=== PATIENT | male | born 1955 | race Caucasian/White ===

== ENCOUNTER → 2020-06-05 | Outpatient (CLI) | payer BC ==
[2020-06-05 08:24] LABS: ALBUMIN 3.5 g/dL (3.4-5.0); ALBUMIN/GLOBULIN RATIO 1.1 (1.0-1.7); CALCIUM 8.5 mg/dL (8.5-10.1); CREATININE 1.3 mg/dL (0.7-1.3); GFR 55.6; TOTAL BILIRUBIN 0.4 mg/dL (0.2-1.0); TOTAL PROTEIN 6.8 g/dL (6.4-8.2)
--- NOTE | 2020-06-05 08:43 | RAD ---
Carotid artery duplex Doppler ultrasound Stenosis calculations for CT, MR, and conventional angiography are based upon measurements of the dis lili ICA diameter in accordance with the NASCET methodology. Stenosis calculations for carotid ultraso und studies are derived from validated velocity criteria which are known to correlate with the NASCET methodology. HISTORY: Carotid artery bruit. FINDINGS: Right carotid artery demonstrates no plaque or stenosis by grayscale and color Doppler sono graphy. Normal carotid waveforms. Internal carotid artery peak systolic velocity 57 cm/s, end-diastol ic velocity 20 cm/s. ICA/CC velocity ratio 0.8. Right vertebral artery antegrade blood flow. Left carotid artery demonstrates no plaquing or stenosis by grayscale and color Doppler sonography. N ormal carotid waveforms. Internal carotid artery peak systolic velocity 64 cm/s, end-diastolic veloci ty 29 cm/s. ICA/CC velocity ratio 0.9. Left vertebral artery antegrade blood flow. IMPRESSION: Normal exam. Electronically signed by: Freddie Garcia MD (06/05/2020 8:40 AM) [id number]
--- NOTE | 2020-06-05 16:52 | RAD ---
MR#: [id number] Date of Study: 06/05/2020 Ordering Physician: MOE ROSAS, Referring Physician: MIKAYLA BREWSTER Tech: RT Patricia (R) (N) APPROVED REPORT Test Type: Exercise Stress Nurse/Tech: RT Patricia (R) (N)Ant Test Indications: CAD Cardiac History: Hypertension, [place], Cath 2013 Resting Heart Rate: 57 bpm Resting Blood Pressure: 147/76mmHg Pretest Chest Pain: None Stress Symptoms Dyspnea POST EXERCISE Reason for Termination: Reached target heart rate Target HR: Yes Max HR: 132 bpm 100% of Maximum Predicted HR: 132 bpm Exercise duration: 8:45 min:sec, Stage Exercise capacity: 10METs Max Blood Pressure: 169/90mmHg Blood Pressure response to exercise: Normal blood pressure response during stress. Heart Rate response to exercise: Increase Chest Pain: No. Arrhythmia: No. ST Change: No. INTERPRETATION Stress EKG Conclusion: Baseline EKG showed sinus rhythm. No ischemic changes at peak stress. No arr hythmias. Imaging Protocol IMAGE PROTOCOL: Rest Tc-99m/stress Tc-99m 1 day Rest: Stress: Viability: Radiopharm.Tc99m CaqurtwcyFd84m Sestamibi Kwqs6cVh 30mCi Duration 15min. 15min. Img Date 06/05/2020 06/05/2020 Inj-Img [id number]. 60min. Rest Admin Site:IV - Right AntecubitalAdministrator: RT Patricia (Hemal)(N) Stress Admin Site: IV - Right AntecubitalAdministrator: RT Patricia (R)(N) STRESS DATA End Diast. Vol.122.0mlAv. Heart Rate64.0bpm End Syst. Vol.39.0mlCO Index BSA0.0L/min Myocardial Qkdr707.0gEject. Jciuauin15.0% Stress Rates Pk. Fill Rate2.18EDV/secLVtime Pk. Fill 213.09msec Pk. Empty Rate3.32ESV/secLVtime Pk. Fcmvp840.44msec 04/28 Pk. Fill1.39EDV/sec Stress Scores Regional WT1.00Summed WT1.00 Regional WM0.00Summed WM2.00 LV Perfusion Scintigraphic images showed small to moderate sized fixed defect involving the apical wall consistent with previous myocardial infarction without any reversibility. Wall Motion Apical wall hypokinesis with ejection fraction calculated at 67%. LV Perf. Quant 17 Seg. SSS14.00 17 Seg. SRS15.00 17 Seg. SDS0.00 Stress Defect Extent (% LAD)44.40Rest Defect Extent (% LAD)49.40Rev. Defect Extent (% LAD)0.00 Stress Defect Extent (% LCX) 15.00Rest Defect Extent (% LCX)22.50Rev. Defect Extent (% LCX)0.00 Stress Defect Extent (% RCA)7.80Rest Defect Extent (% RCA)16.70Rev. Defect Extent (% RCA)0.00 Stress Defect Extent (% MARLY)31.30Rest Defect Extent (% MARLY)38.50Rev. Defect Extent (% MARLY)0.00 Conclusion 1. Treadmill exercise cardioisotope stress test showed small to moderate apical wall infarct without any ischemia. 2. Apical wall hypokinesis with ejection fraction calculated at 67%. 3. Low risk for cardiac events. Signed by : Panchito Licona, Electronically Approved : 06/05/2020 16:51:55
== END ==
LOC: US 07:46
PROVIDERS: ATTEND Internal Medicine Cardiovascular Disease
DX: I21.29 ST elevation (STEMI) myocardial infarction involving other sites (principal); R09.89 Other specified symptoms and signs involving the circulatory and respiratory systems; E78.5 Hyperlipidemia, unspecified; I25.10 Atherosclerotic heart disease of native coronary artery without angina pectoris
CPT/HCPCS: 36415; 78452; 80053; 80061; 93017; 93880; A9500; 96376

== ENCOUNTER → 2020-07-09 | Outpatient (CLI) | payer BC ==
--- NOTE | 2020-07-09 16:57 | CARD ---
MR#: [id number] Date of Study: 07/09/2020 Ordering Physician: MOE ROSAS, Referring Physician: MOE ROSAS, Tech: Jesika Rubio [facility] APPROVED REPORT EXAM: Two-dimensional and M-mode echocardiogram with Doppler and color Doppler. Other Information Quality : Fair Technically limited study due to body habitus. INDICATION Cardiac Disease: CAD 2D DIMENSIONS Left Atrium(2D)3.8 (1.6-4.0cm)IVSd0.8 (0.7-1.1cm) Aortic Root(2D)3.4 (2.0-3.7cm)LVDd5.4 (3.9-5.9cm) LVOT Diameter2.1 (1.8-2.4cm)PWd0.8 (0.7-1.1cm) LVDs3.8 (2.5-4.0cm)FS (%) 30.2 % SV80.4 mlLVEF(%)57.0 (>50%) Aortic Valve AoV Peak Gerardo.163.5cm/sAoV VTI30.4cm AO Peak GR.10.7mmHgLVOT Peak Gerardo.127.6cm/s LVOT VTI 23.77cmAO Mean GR.5mmHg LOLA (VMAX)2.90qn1ILZ (VTI)2.59cm2 Mitral Valve MV E Dgfxexcl07.5cm/sMV DECEL [id number] MV A Ngzwmfbc01.5cm/sE/A Ratio0.6 Pulmonary Vein S1 Imllzpuh60.9cm/sD2 Brmuheso19.5cm/s LEFT VENTRICLE The left ventricle is normal size. There is normal left ventricular wall thickness. The left ventricu lar systolic function is normal and the ejection fraction is within normal range. EF 55% The mid to d istal inferoseptum is moderately hypokinetic. Otherwise, grossly normal LV function. Transmitral Dopp ler flow pattern is Grade I-abnormal relaxation pattern. RIGHT VENTRICLE The right ventricle is normal size. The right ventricular systolic function is normal. ATRIA The left atrium size is normal. The right atrium size is normal. The interatrial septum is intact wit h no evidence for an atrial septal defect or patent foramen ovale as noted on 2-D or Doppler imaging. AORTIC VALVE The aortic valve is calcified but opens well. Doppler and Color Flow revealed no significant aortic r egurgitation. There is no significant aortic valvular stenosis. MITRAL VALVE The mitral valve is calcified but opens well. There is no evidence of mitral valve prolapse. There is no mitral valve stenosis. Doppler and Color Flow revealed no mitral valve regurgitation noted. TRICUSPID VALVE The tricuspid valve is normal in structure and function. Doppler and Color Flow revealed no tricuspid valve regurgitation noted. There is no tricuspid valve stenosis. PULMONIC VALVE The pulmonic valve is not well visualized. Doppler and Color Flow revealed no pulmonic valvular regur gitation. There is no pulmonic valvular stenosis. GREAT VESSELS The aortic root is normal in size. The ascending aorta is not well seen. The IVC is normal in size an d collapses >50% with inspiration. PERICARDIAL EFFUSION There is no evidence of significant pericardial effusion. Critical Notification Critical Value: No <Conclusion> The left ventricular systolic function is normal and the ejection fraction is within normal range. EF 55% The mid to distal inferoseptum is moderately hypokinetic. Otherwise, grossly normal LV function. Technically difficult study. Signed by : Moe Rosas, Electronically Approved : 07/09/2020 16:57:18
== END ==
LOC: ECHO 13:52 → EDUNIT# 14:00
PROVIDERS: ATTEND Internal Medicine Cardiovascular Disease
DX: I08.0 Rheumatic disorders of both mitral and aortic valves (principal); I25.10 Atherosclerotic heart disease of native coronary artery without angina pectoris
CPT/HCPCS: 93306